=== PATIENT | male | born 1975 | race Caucasian/White ===

== ENCOUNTER 2022-04-23 21:40 | Emergency (ER) | payer OTHER, SELFPAY ==
[2022-04-23 21:43] VITALS: BP 163/113; PULSE 117; RESP 22; TEMP 36.4; O2SAT 99
--- NOTE | 2022-04-23 23:23 | ED.ALLEREA ---
HPI - Allergic Reaction General Chief complaint: Allergic Reaction Stated complaint: allergic reaction Time Seen by Provider: 04/23/22 22:48 History of Present Illness HPI narrative: 47-year-old male presents to the emergency room for evaluation of pruritic rash. Patient states that there time he was eating at all he can eat salad bar when he soon afterwards began experiencing welts to his torso back scalp arms. States these areas were highly pruritic. Patient states he took a 25 mg of hydroxyzine and a Zyrtec prior to arrival. Reportedly this drastically improved his symptoms but the itching remains. Denies any shortness of breath or difficulty breathing. No known drug allergies or food allergies. Related Data Allergies Allergy/AdvReac Type Severity Reaction Status Date / Time No Known Allergies Allergy Verified 04/23/22 21:47 Review of Systems Review of Systems: CONSTITUTIONAL: Denies fever, chills, or sweats. EYES: Denies visual changes, redness, or discharge. ENT: Denies rhinorrhea, congestion, sore throat, or otalgia. CARDIOVASCULAR: Denies chest pain, palpitations, or edema. RESPIRATORY: Denies cough or dyspnea. GASTROINTESTINAL: Denies abdominal pain, nausea, vomiting, or diarrhea. GENITOURINARY: Denies dysuria or hematuria. SKIN: Reports rash or itching. MUSCULOSKELETAL: Denies back pain, joint pain, or myalgia. NEUROLOGIC: Denies headache, numbness, dizziness, or weakness. PSYCHIATRIC: Denies anxiety or depression. FOR[facility]LY [facility] Social History Social History Smoking status: Never smoker Smokeless tobacco user: chewing tobacco and other Alcohol intake: former Alcohol use details: former alcoholic Exam Narrative: GENERAL: Well-appearing, well-nourished, no physical limitations, and in no acute distress. HEAD: Normocephalic, atraumatic. EYES: Conjunctivae normal, PERRLA and EOMI.D CHEST: Clear to auscultation. No respiratory distress. No wheezes rales or rhonchi. HEART: Regular rate and rhythm. No murmur heard. Normal peripheral pulses. EXTREMITIES: Normal range of motion. No edema. No clubbing or cyanosis SKIN: Scattered areas of macular papular rash to the scalp and upper torso NEURO: No focal deficits. Alert and oriented x3. MAEW. CN's II-XI intact bilaterally, normal gait PSYCH: Cooperative. Normal mood and affect. Course Vital Signs Vital signs: Vital Signs Temperature 36.4 C 04/23/22 21:43 Pulse Rate 117 H 04/23/22 21:43 Respiratory Rate 22 H 04/23/22 21:43 Blood Pressure 163/113 H 04/23/22 21:43 Pulse Oximetry 99 04/23/22 21:43 Oxygen Delivery Room Air 04/23/22 21:43 Temperature 36.4 C 04/23/22 21:43 Pulse Rate 117 H 04/23/22 21:43 Respiratory Rate 22 H 04/23/22 21:43 Blood Pressure 163/113 H 04/23/22 21:43 Pulse Oximetry 99 04/23/22 21:43 Oxygen Delivery Room Air 04/23/22 21:43 Discharge Plan Discharge Clinical Impression: Allergic reaction, Urticaria Patient Disposition: Home, Self-Care Condition: Stable Instructions: Antibiotic Form Additional Instructions: Recommend taking Benadryl as needed every 6-8 hours for the itching. May also supplement with Pepcid daily. Prescriptions: New prednisone 20 mg tablet 60 mg PO DAILY 5 Days Qty: 15 0RF Follow-up/Referrals: PHYSICIAN,POST FRAMER [Primary Care Provider] - Time of Disposition: 23:25
[2022-04-23] MEDS: SODIUM CHLORIDE 0.9% IV 1,000 ML 999 ML IV CONT (23:38)
[2022-04-23] MEDS: FAMOTIDINE 20 MG/2 ML VIAL IV PUSH (23:39)
[2022-04-23] MEDS: diphenhydrAMINE HCl INJ 50 MG/ML VIAL 25 MG IV PUSH (23:39)
[2022-04-24 00:28] VITALS: PULSE 90; RESP 16; O2SAT 98
== END 2022-04-24 00:30 | disposition home or self-care (01) ==
PROVIDERS: Emergency Provider Nurse Practitioner Family
DX: L50.0 Allergic urticaria (principal); F17.220 Nicotine dependence, chewing tobacco, uncomplicated
CPT/HCPCS: 96361; 96374; 96375; 99284; J1100; J1200; J7030

== ENCOUNTER 2024-06-02 15:43 | Emergency (ER) | payer OTHER, SELFPAY ==
[2024-06-02 15:51] VITALS: BP 189/95; PULSE 99; RESP 17; TEMP 36.4; O2SAT 99
--- NOTE | 2024-06-02 16:08 | ED.URI ---
HPI - URI/Sore Throat General Chief Complaint: Upper Respiratory Infection Stated Complaint: cough and cold sx's Time Seen by Provider: 06/02/24 16:00 Focused HPI: Patient is a 49-year-old male who presents to the ER with complaints of a 3 week history of cough and cold. Today he endorses feeling of ?something being stuck in my throat. Patient reports he felt as though he was choking and his throat spasmed prior to arrival. He reports he took a COVID test at home and it was negative. Patient denies wheezing and mild SOB after the spasm. He endorses a history of HTN, gout, and hyperlipidemia. GENERAL: Well-appearing, well-nourished, and in no acute distress. HEAD: Normocephalic, atraumatic. CHEST: Clear to auscultation. ?No respiratory distress. HEART: Regular rate and rhythm.? NEURO: ?Alert and oriented x3. Patient screened in triage and initial orders placed.? ?Additional care and disposition to be based upon?diagnostic testing and treatment. Related Data Home Medications ?Medication ?Instructions ?Recorded ?Confirmed ?Last Taken ?Type latanoprost 0.005 % eye drops 1 drp EACH EYE DAILY 07/27/23 07/27/23 Unknown History (Xalatan) Allergies Allergy/AdvReac Type Severity Reaction Status Date / Time No Known Allergies Allergy Verified 07/27/23 09:46 [facility] Past Medical History Medical History Essential (primary) hypertension Gout, unspecified Impaired glucose tolerance (oral) Mixed hyperlipidemia Obesity, unspecified Family History Family History Grandparent Alcoholism Hypertension Grandparent Hypertension Heart disease Cerebrovascular accident Mother Hypertension Father Hypertension Heart disease Social History Social History Smoking status: Light tobacco smoker (1 cigar socially a year.) Tobacco type: smokeless tobacco Smokeless tobacco user: chewing tobacco and other Alcohol intake: former Alcohol use details: former alcoholic Substance use: never Substance use type: does not use Lack of Transportation: No Lack of Food: Never True Current Housing: I Have Housing Concerned About Future Housing: No Difficulty Paying Gas/Electric Bills: No Difficulty Paying for Meds: No Currently Unemployed: No Education: Master's Degree or Higher Difficulty w/ Childcare or Family Care: No Living arrangements: with family 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0) K/mm3 RBC 4.62 (4.6-6.20) M/mm3 Hgb 13.8 L (14.0-18.0) g/dL Hct 41.4 L (42.0-52.0) % MCV 89.6 (80-100) fl MCH 29.9 (26-34) pg MCHC 33.3 (32-36) g/dl RDW 13.3 (11.5-14.5) % Plt Count 225 (150-375) k/mm3 MPV 9.8 (7.4-10.4) fl Immature Gran % (Auto) 0.3 (0-0.5) % Neut % (Auto) 64.4 (45.5-73.1) % Lymph % (Auto) 24.5 (18.3-44.2) % Kay % (Auto) 8.9 H (2.6-8.5) % Eos % (Auto) 1.2 (0-4.4) % Baso % (Auto) 0.7 (0.2-1.2) % Lymph # (Auto) 1.84 (0.9-3.2) K/mm3 Kay # (Auto) 0.7 H (0.1-0.6) K/mm3 Eos # (Auto) 0.1 (0-0.3) K/mm3 Baso # (Auto) 0.1 (0.0-0.1) K/mm3 Abs Immat Gran (auto) 0.02 (0.00-0.031) K/mm3 Absolute Neuts (auto) 4.8 (1.3-6.7) K/mm3 Absolute Nucleated RBC 0.000 (0.0-0.012) K/mm3 Nucleated RBC % 0.0 (0.0-0.2) % Sodium 138 (137-145) mmol/L Potassium 4.1 (3.4-5.0) mmol/L Chloride 101 (98-107) mmol/L Carbon Dioxide 27 (22-30) mmol/L Anion Gap 10 (4-12) mmol/L BUN 10 (9-20) mg/dL Creatinine 0.70 (0.7-1.3) mg/dL Estim Creat Clear Calc 167 ml/min Estimated GFR > 60 (59 - ) Glucose 98 (65-110) mg/dL Calcium 8.9 (8.4-10.2) mg/dL Total Bilirubin 0.6 (0.2-1.3) mg/dL AST 58 (17-59) U/L ALT 71 H (6-50) U/L Alkaline Phosphatase 121 (38-126) U/L Total Protein 8.0 (6.3-8.2) g/dL Albumin 4.2 (3.5-5.1) g/dL Influenza A (RT-PCR) Negative (Negative) Influenza B (RT-PCR) Negative (Negative) RSV (RT-PCR) Negative (Negative) SARS-CoV-2 RNA (RT-PCR) Negative (Negative) Group A Strep (PCR) Not detected (Negative) Discharge Plan Discharge Clinical Impression: Upper respiratory infection Patient Disposition: Home, Self-Care Condition: Stable Instructions: Antibiotic Form, Upper Respiratory Infection (DC) Additional Instructions: RETURN IF SYMPTOMS ARE WORSENING , CALL YOUR FAMILY PHYSICIAN FOR APPOINTMENT, TAKE TYLENOL, IBUPROFEN NEEDED FOR ACHES AND PAIN, CONTINUE HOME MEDICATIONS. Patient Language: Malian Prescriptions: New doxycycline hyclate 100 mg capsule 100 mg PO BID Qty: 20 0RF prednisone 20 mg tablet 40 mg PO DAILY 5 Days Qty: 10 0RF benzonatate 200 mg capsule 200 mg PO TID PRN (Reason: cough) Qty: 30 0RF albuterol-budesonide 90-80 mcg/actuation HFA aerosol inhaler 2 inh inhalation QID PRN (Reason: shortness of breath) Qty: 10.7 0RF No Action hydroxyzine HCl 25 mg tablet 25 mg PO TID PRN (Reason: itching) Qty: 60 0RF latanoprost [Xalatan] 0.005 % drops 1 drp EACH EYE DAILY colchicine 0.6 mg tablet 0.6 mg PO BID PRN (Reason: gout flare-up) Qty: 30 0RF indomethacin 50 mg capsule 50 mg PO TID PRN (Reason: gout flare-up) Qty: 30 0RF Rx Instructions: administer with food or milk metoprolol succinate 50 mg tablet extended release 24 hr See Rx Instructions .ROUTE .COMPLEX Qty: 30 0RF Dose Instruction: TAKE 1 TABLET BY MOUTH DAILY Rx Instructions: TAKE 1 TABLET BY MOUTH DAILY atorvastatin 20 mg tablet See Rx Instructions .ROUTE .COMPLEX Qty: 30 0RF Dose Instruction: TAKE 1 TABLET BY MOUTH EVERY DAY AT BEDTIME Rx Instructions: TAKE 1 TABLET BY MOUTH EVERY DAY AT BEDTIME allopurinol 300 mg tablet 300 mg PO DAILY Qty: 90 1RF Follow-up/Referrals: Josr Gonzalez APRN [Primary Care Provider] -
[2024-06-02] MEDS: dexAMETHasone SOD PHOS INJ 10 MG/ML 1 ML VIAL IM (16:47)
[2024-06-02 16:54] LABS: Basophils Absolute Auto 0.1 K/mm3 (0.0-0.1); Basophils Percent Auto 0.7 % (0.2-1.2); Eosinophils Absolute Auto 0.1 K/mm3 (0-0.3); Eosinophils Percent Auto 1.2 % (0-4.4); Hematocrit 41.4 % (42.0-52.0); Hemoglobin 13.8 g/dL (14.0-18.0); Immature Granulocyte Absolute 0.02 K/mm3 (0.00-0.031); Immature Granulocyte Percent A 0.3 % (0-0.5); Lymphocytes Absolute Auto 1.84 K/mm3 (0.9-3.2); Lymphocytes Percent Auto 24.5 % (18.3-44.2); Mean Corpuscular HGB Conc 33.3 g/dl (32-36); Mean Corpuscular Hemoglobin 29.9 pg (26-34); Mean Corpuscular Volume 89.6 fl (80-100); Mean Platelet Volume 9.8 fl (7.4-10.4); Monocytes Absolute Auto 0.7 K/mm3 (0.1-0.6); Monocytes Percent Auto 8.9 % (2.6-8.5); Neutrophils Absolute Auto 4.8 K/mm3 (1.3-6.7); Neutrophils Percent Auto 64.4 % (45.5-73.1); Platelet Count Result 225 k/mm3 (150-375); Red Blood Count 4.62 M/mm3 (4.6-6.20); Red Cell Distribution Width 13.3 % (11.5-14.5); White Blood Count 7.5 K/mm3 (4.5-10.0)
[2024-06-02 17:04] LABS: Alanine Aminotransferase 71 U/L (6-50); Albumin Level 4.2 g/dL (3.5-5.1); Alkaline Phosphatase 121 U/L (38-126); Anion Gap 10 mmol/L (4-12); Aspartate Amino Transferase 58 U/L (17-59); Bilirubin,Total 0.6 mg/dL (0.2-1.3); Blood Urea Nitrogen 10 mg/dL (9-20); Calcium 8.9 mg/dL (8.4-10.2); Carbon Dioxide 27 mmol/L (22-30); Chloride 101 mmol/L (98-107); Estimated CRCL calculation 167 ml/min; Estimated Glomerular Filt Rate > 60; Glucose 98 mg/dL (65-110); Potassium 4.1 mmol/L (3.4-5.0); Sodium 138 mmol/L (137-145)
[2024-06-02 17:18] LABS: Strep Group A RT-PCR NOT DETECTED (Negative)
[2024-06-02 17:30] LABS: Influenza A QL RT-PCR Negative (Negative); Influenza B QL RT-PCR Negative (Negative); RSV RNA, RT-PCR Negative (Negative); SARS-CoV-2 RNA PCR Negative (Negative)
[2024-06-02 18:37] VITALS: O2SAT 99
--- NOTE | 2024-06-02 19:10 | ED.URI ---
HPI - URI/Sore Throat General Chief Complaint: Upper Respiratory Infection Stated Complaint: cough and cold sx's Time Seen by Provider: 06/02/24 16:00 Source: patient Mode of arrival: ambulatory Limitations: no limitations Related Data Home Medications ?Medication ?Instructions ?Recorded ?Confirmed ?Last Taken ?Type latanoprost 0.005 % eye drops 1 drp EACH EYE DAILY 07/27/23 07/27/23 Unknown History (Xalatan) Allergies Allergy/AdvReac Type Severity Reaction Status Date / Time No Known Allergies Allergy Verified 07/27/23 09:46 COUNTS INCLUDE 234 BEDS AT THE [facility] Past Medical History Medical History Essential (primary) hypertension Gout, unspecified Impaired glucose tolerance (oral) Mixed hyperlipidemia Obesity, unspecified Family History Family History Grandparent Alcoholism Hypertension Grandparent Hypertension Heart disease Cerebrovascular accident Mother Hypertension Father Hypertension Heart disease Social History Social History Smoking status: Light tobacco smoker (1 cigar socially a year.) Tobacco type: smokeless tobacco Smokeless tobacco user: chewing tobacco and other Alcohol intake: former Alcohol use details: former alcoholic Substance use: never Substance use type: does not use Lack of Transportation: No Lack of Food: Never True Current Housing: I Have Housing Concerned About Future Housing: No Difficulty Paying Gas/Electric Bills: No Difficulty Paying for Meds: No Currently Unemployed: No Education: Master's Degree or Higher Difficulty w/ Childcare or Family Care: No Living arrangements: with family 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0) K/mm3 RBC 4.62 (4.6-6.20) M/mm3 Hgb 13.8 L (14.0-18.0) g/dL Hct 41.4 L (42.0-52.0) % MCV 89.6 (80-100) fl MCH 29.9 (26-34) pg MCHC 33.3 (32-36) g/dl RDW 13.3 (11.5-14.5) % Plt Count 225 (150-375) k/mm3 MPV 9.8 (7.4-10.4) fl Immature Gran % (Auto) 0.3 (0-0.5) % Neut % (Auto) 64.4 (45.5-73.1) % Lymph % (Auto) 24.5 (18.3-44.2) % [place] % (Auto) 8.9 H (2.6-8.5) % Eos % (Auto) 1.2 (0-4.4) % Baso % (Auto) 0.7 (0.2-1.2) % Lymph # (Auto) 1.84 (0.9-3.2) K/mm3 [place] # (Auto) 0.7 H (0.1-0.6) K/mm3 Eos # (Auto) 0.1 (0-0.3) K/mm3 Baso # (Auto) 0.1 (0.0-0.1) K/mm3 Abs Immat Gran (auto) 0.02 (0.00-0.031) K/mm3 Absolute Neuts (auto) 4.8 (1.3-6.7) K/mm3 Absolute Nucleated RBC 0.000 (0.0-0.012) K/mm3 Nucleated RBC % 0.0 (0.0-0.2) % Sodium 138 (137-145) mmol/L Potassium 4.1 (3.4-5.0) mmol/L Chloride 101 (98-107) mmol/L Carbon Dioxide 27 (22-30) mmol/L Anion Gap 10 (4-12) mmol/L BUN 10 (9-20) mg/dL Creatinine 0.70 (0.7-1.3) mg/dL Estim Creat Clear Calc 167 ml/min Estimated GFR > 60 (59 - ) Glucose 98 (65-110) mg/dL Calcium 8.9 (8.4-10.2) mg/dL Total Bilirubin 0.6 (0.2-1.3) mg/dL AST 58 (17-59) U/L ALT 71 H (6-50) U/L Alkaline Phosphatase 121 (38-126) U/L Total Protein 8.0 (6.3-8.2) g/dL Albumin 4.2 (3.5-5.1) g/dL Influenza A (RT-PCR) Negative (Negative) Influenza B (RT-PCR) Negative (Negative) RSV (RT-PCR) Negative (Negative) SARS-CoV-2 RNA (RT-PCR) Negative (Negative) Group A Strep (PCR) Not detected (Negative) Imaging Data Radiologist's impression: Impressions Chest X-Ray 06/02/24 20:16 IMPRESSION: No focal infiltrate or effusion. Discharge Plan Discharge Clinical Impression: Upper respiratory infection Patient Disposition: Home, Self-Care Condition: Stable Instructions: Antibiotic Form, Upper Respiratory Infection (DC) Additional Instructions: RETURN IF SYMPTOMS ARE WORSENING , CALL YOUR FAMILY PHYSICIAN FOR APPOINTMENT, TAKE TYLENOL, IBUPROFEN NEEDED FOR ACHES AND PAIN, CONTINUE HOME MEDICATIONS. Patient Language: Upper Sorbian Prescriptions: New doxycycline hyclate 100 mg capsule 100 mg PO BID Qty: 20 0RF prednisone 20 mg tablet 40 mg PO DAILY 5 Days Qty: 10 0RF benzonatate 200 mg capsule 200 mg PO TID PRN (Reason: cough) Qty: 30 0RF albuterol-budesonide 90-80 mcg/actuation HFA aerosol inhaler 2 inh inhalation QID PRN (Reason: shortness of breath) Qty: 10.7 0RF No Action hydroxyzine HCl 25 mg tablet 25 mg PO TID PRN (Reason: itching) Qty: 60 0RF latanoprost [Xalatan] 0.005 % drops 1 drp EACH EYE DAILY colchicine 0.6 mg tablet 0.6 mg PO BID PRN (Reason: gout flare-up) Qty: 30 0RF indomethacin 50 mg capsule 50 mg PO TID PRN (Reason: gout flare-up) Qty: 30 0RF Rx Instructions: administer with food or milk metoprolol succinate 50 mg tablet extended release 24 hr See Rx Instructions .ROUTE .COMPLEX Qty: 30 0RF Dose Instruction: TAKE 1 TABLET BY MOUTH DAILY Rx Instructions: TAKE 1 TABLET BY MOUTH DAILY atorvastatin 20 mg tablet See Rx Instructions .ROUTE .COMPLEX Qty: 30 0RF Dose Instruction: TAKE 1 TABLET BY MOUTH EVERY DAY AT BEDTIME Rx Instructions: TAKE 1 TABLET BY MOUTH EVERY DAY AT BEDTIME allopurinol 300 mg tablet 300 mg PO DAILY Qty: 90 1RF Follow-up/Referrals: Josr Gonzalez APRN [Primary Care Provider] -
== END 2024-06-02 20:34 | disposition home or self-care (01) ==
PROVIDERS: Registered Nurse; Emergency Provider Emergency Medicine; PCP Nurse Practitioner
DX: J06.9 Acute upper respiratory infection, unspecified (principal); Z20.822 Contact with and (suspected) exposure to COVID-19; I10 Essential (primary) hypertension; M10.9 Gout, unspecified; E78.2 Mixed hyperlipidemia; E66.9 Obesity, unspecified; Z68.43 Body mass index [BMI] 50.0-59.9, adult; F17.290 Nicotine dependence, other tobacco product, uncomplicated; F17.220 Nicotine dependence, chewing tobacco, uncomplicated; Z79.899 Other long term (current) drug therapy
CPT/HCPCS: 36415; 71045; 80053; 85025; 87637; 87651; 96374; 99284; J1100

== ENCOUNTER 2024-06-13 10:22 | Outpatient (CLI) | payer OTHER, SELFPAY ==
--- OUTSIDE RECORDS SUMMARY | 2024-06-13 11:05 | XMS_ITS | Referral Summary ---
Author Organization [facility] Virtual Care Address [address] [place] [phone] Phone Care Team Providers Care Campus Administrative Assistant Name Role Phone Idania Guerin NP Primary Care Provider [phone] Allergies No known active allergies Medications metoprolol XL (TOPROL-XL) 50 mg extended release tablet Take 1 tablet (50 mg total) by mouth daily 10/03/2022 Active atorvastatin (LIPITOR) 20 mg tablet Take 0.5 tablets (10 mg total) by mouth nightly at bedtime Active Active Problems Problem Noted Date Diagnosed Date Hypertension, essential 10/10/2022 Assessment & Plan (10/10/2022 8:03 PM CDT): - Chronic, Blood pressure is well-controlled - Discussed how routine use of a CPAP machine can help control BP - Continue metoprolol Severe obstructive sleep apnea 10/06/2022 Overview (10/10/2022): - HST (09/03/21): AHI was 32.6 with O2 linad of 74% - DME: [facility] Assessment & Plan (10/10/2022 8:10 PM CDT): 1. Chronic, Poorly-controlled 2. Reviewed sleep study results 3. Discussed treatment options 4. Patient decided on CPAP therapy 5. 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 Gender Identity Not on file Sexual Orientation Not on file Last Filed Vital Signs Vital Sign Reading Time Taken Comments Blood Pressure 124/78 10/10/2022 1:33 PM CDT Pulse 85 10/10/2022 1:33 PM CDT Temperature 36.8 C (98.2 F) 09/29/2022 2:16 PM CDT Respiratory Rate 14 09/29/2022 5:30 PM CDT Oxygen Saturation 97% 10/10/2022 1:33 PM CDT Inhaled Oxygen Concentration - - Weight 153.8 kg (339 lb) 10/10/2022 1:33 PM CDT Height 177.8 cm (5' 10 ) 10/10/2022 1:33 PM CDT Body Mass Index 48.64 10/10/2022 1:33 PM CDT Plan of Treatment Not on file Procedures Procedure Name Priority Date/Time Associated Diagnosis Comments SERUM HEPATITIS PANEL Routine 08/11/2014 3:14 PM CDT from Last 3 Months or Most Recently Relevant to Health Maintenance Results * Serum Hepatitis panel (08/11/2014 3:14 PM CDT) HBV surface ag Negative NEG HISTO RICAL RESULTS HCV ab Negative NEG HISTORICAL RESULTS Comment: Interpretive Data If confirmation is required, call Laboratory Customer Service to request sample to be sent to [facility] for Hepatitis C Virus (HCV) RNA Detection and Quantitation by Real-Time Reverse Store Administrative Assistant-PCR (RT-PCR). Current interpretive data was last revised on 2011 HBV core ab, IgM Negative NEG HIS TORICAL RESULTS Comment: Interpretive Data If test is reported as Equivocal, new sample should be drawn for testing. Current interpretive data was last revised on 2007. HAV ab, IgM Negative NEG HISTORIC AL RESULTS Comment: Interpretive Data If test is reported as Equivocal, new sample should be drawn in two weeks for testing. Current interpretive data was last revised on 2007. Serum 08/11/2014 3:14 PM CDT us Susanna Corey MD LAB BLOOD ORDERABLES Kathia l Result HISTORICAL RESULTS from Last 3 Months or Most Recently Relevant to Health Maintenance Insurance [employer] Address: [facility] [id number] [place] [phone] [place] [address] [facility] [employer] Address: [facility] [address] [place] [address] [employer] [facility] [employer] Address: [facility] [address] [place] [address] Care Teams Campus Administrative Assistant Relationship Specialty Start Date End Date Idania Guerin NP [address] [facility] [address] [place] [id number] PCP - General Nurse Practitioner 04/26/23
--- OUTSIDE RECORDS SUMMARY | 2024-06-13 11:05 | XMS_ITS | Clinical Summary ---
Author Organization [facility] Virtual Care Address [address] [place] [phone] Phone Care Team Providers Care Conventions Assistant Name Role Phone Idania Guerin NP Primary Care Provider [phone] Allergies No known active allergies Medications metoprolol [...] HST (09/03/21): AHI was 32.6 with O2 linda of 74% - DME: [facility] Assessment & Plan (10/10/2022 8:10 PM CDT): 1. Chronic, Poorly-controlled 2. Reviewed sleep study results 3. Discussed treatment options 4. Patient decided on CPAP therapy 5. 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 Gender Identity Not on file Sexual Orientation Not on file Obstetrics History Last Filed Vital Signs Vital Sign Reading [...] 10/10/2022 1:33 PM CDT Plan of Treatment Health Maintenance Due Date Last Done Comments Colon Cancer Screening-Colonoscopy 1975 DTaP/Tdap/Td Vaccine (1 - Tdap) 1986 Hepatitis B Screening 1993 Regular Well Visit/Exam 18-64 1993 Depression Screening 09/22/2021 09/22/2020, 09/23/19 21 Covid-19 Vaccine ( season) 2023 01/04/2022, 04/06/2021, 04/12/2020, Additional history exists Influenza Vaccine (#1) 2023 3, 01/04/2022, 01/13/2017, Additional history exists Hepatitis C Screening Completed 08/11/2014 Pneumococcal vaccine <65 Aged Out No longer eligible based on patient's age to complete this topic Procedures Procedure Name Priority Date/Time Associated Diagnosis [...] to request sample to be sent to [facility] for Hepatitis C Virus (HCV) RNA Detection and Quantitation by Real-Time Reverse Leasing Manager-PCR (RT-PCR). Current interpretive data was last revised [...] Susanna Corey MD LAB BLOOD ORDERABLES Kathia mills Result HISTORICAL RESULTS from Last 3 Months or Most Recently Relevant to Health [place] [address] [employer] [employer] Address: [facility] [id number] [place] [address] [employer] [employer] Address: [facility] [address] [place] [address] [facility] [employer] Address: [facility] [address] [place] [address] Care Teams Conventions Assistant Relationship Specialty Start Date End Date Idania Guerin NP [address] [place] [address] PCP - General Nurse Practitioner 04/26/23
--- OUTSIDE RECORDS SUMMARY | 2024-06-13 11:05 | XMS_ITS | Clinical Summary ---
Author Organization [facility] Address [address] [place] [phone] Phone Care Team Providers Care Floor Associate Name Role Phone Ricardo Contreras MD Primary Care Provider [phone] Allergies No known active allergies Medications metoprolol succinate ER 24 hour (TOPROL-XL) 50 mg tablet Take 75 mg by mouth daily. Active atorvastatin (LIPITOR) 20 mg tablet Take 20 mg by mouth daily. Active Active Problems Problem Noted Date Diagnosed Date Sleep apnea 09/04/2022 Immunizations Immunization Administration Dates Next Due INFLUENZA VACCINE QUADRIVALENT 3 YR UP PF IM Social History Tobacco Use Types Packs/Day Years Used Date Smoking Tobacco: Never Alcohol Use Standard Drinks/Week Comments Yes 0 (1 standard drink = 0.6 oz pur e alcohol) occasionally Sex and Gender Information Value Date Recorded Sex Assigned at Not on file Legal Sex Male 1:39 AM CDT Gender Identity Not on file Sexual Orientation Not on file Last Filed Vital Signs Vital Sign Reading Time Taken Comments Blood Pressure 144/88 08/21/2022 1:55 PM CDT Pulse 89 08/21/2022 1:55 PM CDT Temperature 36.7 C (98.1 F) 08/18/2013 10:02 AM CDT Respiratory Rate 20 08/18/2013 10:0 2 AM CDT Oxygen Saturation 97% 08/21/2022 1:55 PM CDT RA Inhaled Oxygen Concentration - - Weight 153.9 kg (339 lb 3.2 oz) 08/21/2022 1:55 PM CDT Height 177.8 cm (5' 10 ) 08/21/2022 1:55 PM CDT Body Mass Index 48.67 08/21/2022 1:55 PM CDT Plan of Treatment Health Maintenance Due Date Last Done Comments DTAP/TDAP/TD VACCINES (1 - Tdap) 1994 HEPATITIS B VACCINES (1 of 3 - 19+ 3-dose series) 1994 COLORECTAL SCREENING 02/17/2020 Colorectal Cancer Screening 02/17/2020 FIT-DNA Q 3 years 02/17/2020 FIT/FOBT Q 1 year 02/17/2020 Flex Sig/CT Colonography Q 5 years 02/17/2020 INFLUENZA VACCINE (#1) 2023 11/24/2015 PNEUMOCOCCAL VACCINE 0-49 YEARS Aged Out No longer eligible based on patient's age to complete this topic Insurance Care Teams Floor Associate Relationship Specialty Start Date End Date Ricardo Contreras MD PCP - General Family Practice 08/18/13
== END 2024-06-13 10:23 | disposition home or self-care (01) ==
LOC: ANHCARD 10:23
PROVIDERS: PCP Nurse Practitioner; Visit Provider Nurse Practitioner
DX: R00.2 Palpitations (principal)
CPT/HCPCS: 93242